=== PATIENT | male | born 1965 | race African-American/Black ===

== ENCOUNTER → 2016-05-02 | Outpatient (CLI) | payer BC | LOC: OD 14:37 | PROVIDERS: ATTEND Internal Medicine | DX: M25.562 Pain in left knee (principal) ==

== ENCOUNTER → 2019-01-13 | Outpatient (CLI) | payer BC ==
--- NOTE | 2019-01-13 17:00 | RADIOLOGY REPORT (SQ) ---
EXAM DESCRIPTION: CT ABD/PELVIS NO ORAL OR IV COMPLETED DATE/TIME: 01/13/2019 4:46 pm REASON FOR STUDY: N20.0 CALCULUS OF KIDNEY N20.0 CALCULUS OF KIDNEY COMPARISON: None. TECHNIQUE: CT scan of the abdomen and pelvis performed without intravenous or oral contrast. Images reviewed with lung, soft tissue, and bone windows. Reconstructed coronal and sagittal MPR images revi ewed. All images stored on PACS. All CT scanners at this facility use dose modulation, iterative reconstruction, and/or weight based d osing when appropriate to reduce radiation dose to as low as reasonably achievable (ALARA). [facility]: Dose Right [facility]: CareDose [facility]: Dose Right [facility]: Teradose 4D [facility]: [employer] RADIATION DOSE: CT Rad equipment meets quality standard of care and radiation dose reduction techniq ues were employed. CTDIvol: 8.9 mGy. DLP: 479 mGy-cm.mGy. LIMITATIONS: None. FINDINGS: LOWER CHEST: No significant findings. No nodules or infiltrates. NON-CONTRASTED LIVER, SPLEEN, ADRENALS: Evaluation limited by lack of IV contrast. Multiple low-atte nuation lesions in the liver, measuring less than 1 cm. PANCREAS: No masses. No peripancreatic inflammatory changes. GALLBLADDER: No identified stones by CT criteria. No inflammatory changes to suggest cholecystitis. RIGHT KIDNEY AND URETER: Low-attenuation cortical lesions. Assessment limited by lack of IV contrast. No significant calcifications. No hydronephrosis or hydroureter. LEFT KIDNEY AND URETER: Low-attenuation cortical lesions. Assessment limited by lack of IV contrast. No significant calcifications. No hydronephrosis or hydroureter. AORTA AND RETROPERITONEUM: No aneurysm. No retroperitoneal masses or adenopathy. BOWEL AND PERITONEAL CAVITY: No obvious masses or inflammatory changes. No free fluid. APPENDIX: Normal. PELVIS, BLADDER, AND ABDOMINAL WALL:No abnormal masses. No free fluid. Bladder normal. BONES: No significant findings. OTHER: No other significant finding. IMPRESSION: 1. LOW-ATTENUATION CORTICAL LESIONS IN BOTH KIDNEYS PROBABLY DUE TO CYSTS, ALTHOUGH LIMITED EVALUATIO N ON NONCONTRAST STUDY. NO RENAL OR URETERAL CALCULI. NO HYDRONEPHROSIS. 2. NUMEROUS LOW-ATTENUATION LESIONS IN THE LIVER. POSSIBLY CYSTS. LIMITED EVALUATION ON NONCONTRAST STUDY. IF THE PATIENT HAS HAD PRIOR IMAGING ELSEWHERE, RECOMMEND COMPARISON WITH PRIOR STUDIES. OT HERWISE RECOMMEND FOLLOW-UP WITH CT OR MRI OF THE LIVER. 3. NO OTHER SIGNIFICANT OR ACUTE PROCESS IN THE ABDOMEN OR PELVIS. COMMENT: Quality ID # [id number]: Final reports with documentation of one or more dose reduction techniques (e.g., Automated exposure control, adjustment of the mA and/or kV according to patient size, use of iterative reconstruction technique) TECHNICAL DOCUMENTATION: JOB ID: [id number] [email or web address]- All Rights Reserved Reading location - IP/workstation name: [email or web address]
== END ==
LOC: RAD 16:57
PROVIDERS: ATTEND Internal Medicine
DX: N20.0 Calculus of kidney (principal); K76.9 Liver disease, unspecified; N28.9 Disorder of kidney and ureter, unspecified
CPT/HCPCS: 74176

== ENCOUNTER → 2019-01-18 | Outpatient (CLI) | payer BC ==
--- NOTE | 2019-01-18 12:59 | RADIOLOGY REPORT (SQ) ---
EXAM DESCRIPTION: CT ABD/PELVIS WITH IV ONLY COMPLETED DATE/TIME: 01/18/2019 9:56 am REASON FOR STUDY: CALCULUS OF KIDNEY N20.0 CALCULUS OF KIDNEY COMPARISON: 01/13/2019 TECHNIQUE: CT scan of the abdomen and pelvis performed using helical scanning technique with dynamic intravenous contrast injection. No oral contrast. Images reviewed with lung, soft tissue, and bone windows. Reconstructed coronal and sagittal MPR images reviewed. Delayed images for evaluation of the urinary system also acquired. All images stored on PACS. All CT scanners at this facility use dose modulation, iterative reconstruction, and/or weight based d osing when appropriate to reduce radiation dose to as low as reasonably achievable (ALARA). [facility]: Dose Right [facility]: CareDose [facility]: Dose Right [facility]: Teradose 4D [facility]: [employer] CONTRAST TYPE AND DOSE: contrast/concentration: Isovue 350.00 mg/ml; Total Contrast Delivered: 98.0 ml; Total Saline Delivered: 72.0 ml RENAL FUNCTION: Creatinine- 1.0 RADIATION DOSE: CT Rad equipment meets quality standard of care and radiation dose reduction techniq ues were employed. CTDIvol: 7.9 - 9.2 mGy. DLP: 912 mGy-cm.. LIMITATIONS: None. FINDINGS: LOWER CHEST: No significant interval changes. Findings. No nodules or infiltrates. LIVER: Multiple, innumerable hypoattenuated hepatic lesions, many of which are too small to characte rize. Consideration for these findings include benign entities, including liver cyst. No evidence o f hepatomegaly. No dilated ducts. The hepatic and portal veins are patent. SPLEEN: Normal size. No focal lesions. PANCREAS: No masses. No significant calcifications. No adjacent inflammation or peripancreatic fluid collections. Pancreatic duct not dilated. GALLBLADDER: No identified stones by CT criteria. No inflammatory changes to suggest cholecystitis. ADRENAL GLANDS: No significant masses or asymmetry. RIGHT KIDNEY AND URETER: Multiple hypoattenuated cortical renal lesions, some of the largest measure 1.4 cm. The Hounsfield unit for some of the lesions is just above water range. These findings may represent complex cysts. No hydronephrosis or hydroureter. No significant calcifications. LEFT KIDNEY AND URETER: Multiple hypoattenuated cortical lesions with largest measuring approximatel y 3.2 cm in diameter. No significant calcifications. No hydronephrosis or hydroureter. AORTA AND VESSELS: Two left and four right renal arteries. No aneurysm. No dissection. Renal arteri es, SMA, celiac without stenosis. RETROPERITONEUM: No retroperitoneal adenopathy, hemorrhage or masses. BOWEL AND PERITONEAL CAVITY: Question of a short smooth area of narrowing in the distal descending c olon, axial images 28--29, series 601, in the region of the left mid abdomen. No evidence of bowel o bstruction. No free fluid. APPENDIX: Normal. PELVIS: Prostate gland is stable in appearance. No mass. No free fluid. Normal bladder. ABDOMINAL WALL: No masses. No hernias. BONES: The osseous structures are stable in appearance. OTHER: No other significant finding. IMPRESSION: 1. There are multiple, innumerable hypoattenuated hepatic lesions, many of which are to o small to characterize. Considerations for these findings include benign entities, including cysts. A follow-up contrast CT examination is suggested in four to six to 6 months to document for interva l stability. 2. Multiple bilateral cortical hypoattenuated lesions, some of which are too small to characterize. Consideration for these findings include cyst, some of which may be complex. No evidence of hydrone phrosis. 3. Question of a smooth short area of narrowing involving the distal descending colon in the region of the left mid abdomen. No evidence of bowel obstruction. 4. Additional stable findings as above. TECHNICAL DOCUMENTATION: JOB ID: [id number] Quality ID # [id number]: Final reports with documentation of one or more dose reduction techniques (e.g., Au tomated exposure control, adjustment of the mA and/or kV according to patient size, use of iterative reconstruction technique) 2010 [employer]- All Rights Reserved Reading location - IP/workstation name: [email or web address]
== END ==
LOC: RAD 09:19
PROVIDERS: ATTEND Internal Medicine
DX: N20.0 Calculus of kidney (principal)
CPT/HCPCS: 74177; 82565

== ENCOUNTER → 2019-10-07 | Outpatient (CLI) | payer BC ==
--- NOTE | 2019-10-07 10:52 | RADIOLOGY REPORT (SQ) ---
EXAM DESCRIPTION: U/S ABDOMEN LIMITED W/O DOP IMAGES COMPLETED DATE/TIME: 10/07/2019 9:36 am REASON FOR STUDY: Q44.6 CYSTIC DISEASE OF LIVER, R93.3 ABNORMAL FINDINGS ON DX IMAGING OF PRT Q44.6 CYSTIC DISEASE OF LIVER R93.3 ABNORMAL FINDINGS ON DX IMAGING OF PRT DIGESTIVE TRACT COMPARISON: CT 2019 TECHNIQUE: Dynamic and static grayscale images acquired of the abdomen and recorded on PACS. Additio nal selected color Doppler and spectral images recorded. LIMITATIONS: Acoustical interference from habitus and bowel gas. FINDINGS: PANCREAS: Pancreatic head normal. Rest of the pancreas is largely obscured by interferenc e from bowel gas. LIVER: Normal size. Echogenic parenchyma, fatty. Scattered relatively simple appearing cysts. Larg est measures just at 2 cm. LIVER VASCULATURE: Normal directional flow of the main portal vein and hepatic veins. GALLBLADDER: No stones. Normal wall thickness. No pericholecystic fluid. ULTRASOUND-DETECTED HERNADEZ'S SIGN: Negative. INTRAHEPATIC DUCTS AND COMMON DUCT: CBD and intrahepatic ducts normal caliber. No filling defects. INFERIOR VENA CAVA: Normal flow. AORTA: Aorta obscured by gas. RIGHT KIDNEY: Cysts are noted measuring up to 1.4 cm. Otherwise normal. PERITONEAL AND RIGHT PLEURAL SPACE: No ascites or effusions. OTHER: No other significant findings. IMPRESSION: Fatty liver with cysts as above. TECHNICAL DOCUMENTATION: JOB ID: [id number] [employer]- All Rights Reserved Reading location - IP/workstation name: [email or web address]
== END ==
LOC: RAD 08:45
PROVIDERS: ATTEND Internal Medicine Gastroenterology
DX: Q44.6 Cystic disease of liver (principal); R93.3 Abnormal findings on diagnostic imaging of other parts of digestive tract
CPT/HCPCS: 76705